=== PATIENT | male | born 1985 ===

== ENCOUNTER 2018-11-11 10:48 | Emergency (ER) | payer OTHER ==
[2018-11-11 11:01] VITALS: RESP 18
[2018-11-11 11:02] VITALS: BMI 24.4
[2018-11-11] MEDS ORDERED: Sodium Chloride 0.9% 1,000 ML IV STA (12:35)
--- NOTE | 2018-11-11 12:38 | ED PDOC ---
HPI: General Adult Time Seen by Provider: 11/11/18 12:14 Chief Complaint (Nursing): Abdominal Pain Chief Complaint (Provider): Vomit and Diarrhea History Per: Patient History/Exam Limitations: no limitations Onset/Duration Of Symptoms: Days (yesterday) Additional Complaint(s): Pt. with nausea, vomit, diarrhea with no blood. No weakness, headaches, dizziness, back pain. 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 Yesterday had abd cramps, gone now. Past Medical History Reviewed: Nursing Documentation, Vital Signs Vital Signs: Last Vital Signs Temp 99.4 F 11/11/18 11:01 Pulse 97 H 11/11/18 11:01 Resp 18 11/11/18 11:01 BP 145/98 H 11/11/18 11:01 Pulse Ox 98 11/11/18 11:01 - Medical History PMH: No Chronic Diseases - Surgical History Surgical History: No Surg Hx - Family History Family History: States: Unknown Family Hx - Allergies Allergies/Adverse Reactions: Allergies Allergy/AdvReac Type Severity Reaction Status Date / Time No Known Allergies Allergy Verified 11/11/18 12:06 Review of Systems ROS Statement: Except As Marked, All Systems Reviewed And Found Negative Gastrointestinal: Positive for: Nausea, Vomiting, Abdominal Pain Physical Exam - Reviewed Nursing Documentation Reviewed: Yes Vital Signs Reviewed: Yes - Physical Exam Appears: Positive for: Non-toxic, No Acute Distress Head Exam: Positive for: ATRAUMATIC, NORMAL INSPECTION, NORMOCEPHALIC Skin: Positive for: Normal Color, Warm, DRY Eye Exam: Positive for: EOMI, Normal appearance, PERRL ENT: Positive for: Normal ENT Inspection Neck: Positive for: Normal, Painless ROM Cardiovascular/Chest: Positive for: Regular Rate, Rhythm Respiratory: Positive for: CNT, Normal Breath Sounds Gastrointestinal/Abdominal: Positive for: Normal Exam, Soft. Negative for: Tenderness Back: Positive for: Normal Inspection. Negative for: L CVA Tenderness, R CVA Tenderness Extremity: Positive for: Normal ROM Neurological/Psych: Positive for: Awake, Alert, Normal Tone - Laboratory Results Result Diagrams: 11/11/18 13:40 - ECG O2 Sat by Pulse Oximetry: 98 Pulse Ox Interpretation: Normal - Progress ED Course And Treament: 1453: Dr. Devine to fu on labs. Disposition - Clinical Impression Clinical Impression: Diarrhea - Patient ED Disposition Is Patient to be Admitted: Transfer of Care - Disposition Disposition: Transfer of Care Disposition Time: 14:58 Condition: STABLE Patient Signed Over To: Fatoumata Devine Present On Arrival: None
[2018-11-11 13:51] LABS: BASO % 0.3 % (0.0-2.0); EOS # 0.1 K/uL (0.0-0.7); EOS % 0.7 % (0.0-4.0); HEMOGLOBIN 15.8 g/dL (12.0-18.0); LYMPH # 0.9 K/uL (1.0-4.3); LYMPH % 7.5 % (20.0-40.0); MEAN CELL VOLUME 89.4 fl (80.0-94.0); MEAN CORPUSCULAR HEMOGLOBIN 29.5 pg (27.0-31.0); MEAN PLATELET VOLUME 7.4 fl (7.2-11.7); MONO # 0.5 K/uL (0.0-0.8); MONO % 4.4 % (0.0-10.0); NEUT # 10.2 K/uL (1.8-7.0); NEUT % 87.1 % (50.0-75.0); NRBC % 0.1 % (0.0-0.0); PLATELET COUNT 294 K/uL (130-400); RBC 5.37 Mil/uL (4.40-5.90); RED CELL DISTRIBUTION WIDTH 13.8 % (11.5-14.5); WHITE BLOOD COUNT 11.7 K/uL (4.8-10.8)
[2018-11-11 15:02] LABS: ALB/GLOB RATIO 1.5 (1.0-2.1); ALBUMIN 4.5 g/dL (3.5-5.0); ALT/SGPT 35 U/L (21-72); AST/SGOT 33 U/L (17-59); BLOOD UREA NITROGEN 7 mg/dl (9-20); CALCIUM 9.4 mg/dL (8.4-10.2); GFR NON-AFRICAN AMERICAN > 60
[2018-11-11 15:13] LABS: BANDS 4 % (0-2); EOSINOPHIL 1 % (0-7); LYMPHOCYTE 9 % (20-50); MONOCYTE 4 % (0-10); NEUTROPHIL 82 % (42-75); TOTAL CELLS COUNTED 100
[2018-11-11 15:14] LABS: PLATELET ESTIMATE NORMAL (NORMAL)
[2018-11-11] MEDS ORDERED: Potassium Chloride 20 mEq ER Tab PO ONE (15:21)
[2018-11-11] MEDS ORDERED: Potassium Chloride 10 mEq ER Tab PO ONE ×3 (15:26→15:45)
[2018-11-11 16:41] VITALS: BP 129/68; PULSE 78; TEMP 98.8; O2SAT 99
== END 2018-11-11 13:30 | disposition home or self-care (01) ==
LOC: H.ER 10:48
DX: R19.7 Diarrhea, unspecified (principal)
CPT/HCPCS: 80053; 85025; 99283; J2405; J7030